=== PATIENT | male | born 1940 | race Caucasian/White ===

== ENCOUNTER → 2017-01-17 | Outpatient (CLI) | payer MEDICARE, BC ==
[2017-01-17 16:02] LABS: Calcium 10.6 mg/dL (8.4-10.2)
== END | disposition home or self-care (01) ==
LOC: LABWHC1 14:51
PROVIDERS: ATTEND Otolaryngology
DX: E21.3 Hyperparathyroidism, unspecified (principal)
CPT/HCPCS: 36415; 82310; 83970; 84443

== ENCOUNTER → 2017-01-20 | Outpatient (CLI) | payer MEDICARE, BC ==
--- NOTE | 2017-01-20 09:23 | US ---
EXAMINATION TYPE: US thyroid st tissue head/neck DATE OF EXAM: 01/20/2017 8:50 AM COMPARISON: US CLINICAL HISTORY: 76-year-old male Thyroid Nodule E04.1. Follow up thyroid nodule. TECHNIQUE: Multiple sonographic images of the thyroid gland are obtained. FINDINGS: GLAND SIZE: Right Lobe: 4.7 x 1.6 x 1.8 cm Overall Parenchyma: slightly heterogeneous Left Lobe: 3.4 x 1.2 x 1.7 cm Overall Parenchyma: slightly heterogeneous Isthmus Thickness: 0.3 cm NODULES RIGHT: # of nodules measured on right: 1 1. 0.7 X 0.5 x 0.8 cm hyperechoic solid nodule with hypoechoic rim at the upper/mid pole with well- defined margins. This nodule is wider than tall and shows no intranodular vascularity. Prior size: 0.5 x 0.5 x 0.4 cm. However, this may be relatively similar in size as the prior exam does not appear to have included the hypoechoic rim in the measurements. LEFT: # of nodules measured on left: 0 ISTHMUS: # of nodules measured in the isthmus: 0 The bilateral neck scanned, no evidence of lymphadenopathy. IMPRESSION: Echogenic nodule with hypoechoic rim measuring 8 mm in the right upper and mid pole. This was previou sly measured at 5 mm but may be relatively stable as the prior measurement did not include the hypoec hoic rim. This can continue to be reassessed at follow-up.
== END | disposition home or self-care (01) ==
LOC: RADUSWWP 08:19
PROVIDERS: ATTEND Otolaryngology
DX: E04.1 Nontoxic single thyroid nodule (principal)
CPT/HCPCS: 76536

== ENCOUNTER → 2017-08-03 | Outpatient (CLI) | payer MEDICARE, BC ==
--- NOTE | 2017-08-03 09:46 | US ---
EXAMINATION TYPE: US thyroid st tissue head/neck DATE OF EXAM: 08/03/2017 COMPARISON: Thyroid ultrasound dated 01/20/2017 CLINICAL HISTORY: E04.1 Thyroid nodule. Follow up thyroid nodule GLAND SIZE: Right Lobe: 4.4 x 2.1 x 1.8 cm Overall Parenchyma: heterogenous Left Lobe: 3.8 x 1.5 x 1.5 cm Overall Parenchyma: heterogeneous Isthmus Thickness: 0.3 cm NODULES RIGHT: # of nodules measured on right: 2 1. 0.7 X 0.6 x 0.8 cm hyperechoic solid nodule with hypoechoic rim at the upper pole with well-defi jaylene margins; . This nodule is wider than tall and shows intranodular vascularity. Prior size: 0.7 x 0.5 x 0.8 cm 2. 0.9 X 0.7 x 0.7 cm mixed nodule at the lower pole with well-defined margins; . This nodule is wi dar than tall and shows intranodular vascularity. Prior size: not measured prior LEFT: # of nodules measured on left: 0 ISTHMUS: # of nodules measured in the isthmus: 0 Bilateral neck scanned, no evidence of lymphadenopathy. IMPRESSION: Stable subcentimeter hyperechoic right upper pole nodule and additional new subcentimeter mixed but p redominantly hyperechoic lower pole nodule for which surveillance is recommended. No left-sided thyro id nodules.
== END | disposition home or self-care (01) ==
LOC: RADUSWWP 08:26
PROVIDERS: ATTEND Otolaryngology
DX: E04.2 Nontoxic multinodular goiter (principal)
CPT/HCPCS: 76536

== ENCOUNTER → 2018-02-15 | Outpatient (CLI) | payer MEDICARE, BC ==
--- NOTE | 2018-02-15 09:49 | US ---
EXAMINATION TYPE: US thyroid st tissue head/neck DATE OF EXAM: 02/15/2018 COMPARISON: US 2017 CLINICAL HISTORY: E04.1 Thyroid nodules. GLAND SIZE: Right Lobe: 4.4 x 1.7 x 2.1 cm Overall Parenchyma: homogenous Left Lobe: 3.3 x 1.4 x 1.3 cm Overall Parenchyma: homogeneous Isthmus Thickness: 0.5 cm NODULES RIGHT: # of nodules measured on right: 2 1. 0.6 X 0.6 x 0.6 cm echogenic mixed nodule at the upper pole with poorly defined margins. This n odule is wider as is tall and shows intranodular vascularity. Prior size: 0.7 x 0.6 x 0.8 cm 2. 0.6 X 0.5 x 0.6 cm echogenic mixed nodule at the lower pole with poorly defined margins. This no dule is taller than wide and shows no intranodular vascularity. Prior size: 0.9 x 0.7 x 0.7 cm LEFT: # of nodules measured on left: 0 ISTHMUS: # of nodules measured in the isthmus: 0 Bilateral neck scanned, no evidence of lymphadenopathy. IMPRESSION: 1. Stable nonspecific thyroid nodularity. The need to biopsy should be made on a clinical basis.
== END | disposition home or self-care (01) ==
LOC: RADUSWWP 09:00
PROVIDERS: ATTEND Otolaryngology
DX: E04.1 Nontoxic single thyroid nodule (principal)
CPT/HCPCS: 76536

== ENCOUNTER → 2019-03-05 | Outpatient (CLI) | payer MEDICARE, BC ==
--- NOTE | 2019-03-05 15:56 | US ---
EXAMINATION TYPE: US thyroid st tissue head/neck DATE OF EXAM: 03/05/2019 COMPARISON: 02/15/2018 CLINICAL HISTORY: E04.1 THYROID NODULE. Follow up thyroid nodules GLAND SIZE: Right Lobe: 4.6 x 1.7 x 1.8 cm Overall Parenchyma: homogenous Left Lobe: 3.5 x 1.3 x 1.2 cm Overall Parenchyma: homogeneous Isthmus Thickness: 0.3 cm NODULES RIGHT: # of nodules measured on right: 2 1. 1.0 X 0.7 x 0.7 cm mixed nodule at the upper pole with poorly defined margins; . This nodule is wider than tall and shows intranodular vascularity. Prior size: 0.6 x 0.6 x 0.6 cm 2. 0.8 X 0.7 x 0.7 cm mixed nodule at the lower pole with poorly defined margins; . This nodule is wider than tall and shows no intranodular vascularity. Prior size: 0.6 x 0.5 x 0.6 cm LEFT: # of nodules measured on left: 0 ISTHMUS: # of nodules measured in the isthmus: 0 Bilateral neck scanned, no evidence of lymphadenopathy. IMPRESSION: Minimal interval growth of the right thyroid nodules the largest measuring up to 1 cm. These do not y et meet size criteria for fine-needle aspiration and continued surveillance is recommended.
== END | disposition home or self-care (01) ==
LOC: RADUSWWP 14:32
PROVIDERS: ATTEND Otolaryngology
DX: E04.2 Nontoxic multinodular goiter (principal)
CPT/HCPCS: 76536

== ENCOUNTER → 2020-05-30 | Outpatient (CLI) | payer MEDICARE ==
--- NOTE | 2020-05-30 15:17 | US ---
EXAMINATION TYPE: US thyroid st tissue head/neck DATE OF EXAM: 05/30/2020 COMPARISON: 03/05/2019 CLINICAL HISTORY: 79-year-old male E04.1 follow-up Thyroid nodule. TECHNIQUE: Multiple sonographic images of the thyroid gland are obtained. FINDINGS: GLAND SIZE: Right Lobe: 4.4 x 1.4 x 2.3 cm Overall Parenchyma: homogenous Left Lobe: 3.8 x 1.1 x 1.7 cm Overall Parenchyma: homogeneous Isthmus Thickness: 0.4 cm NODULES RIGHT: # of nodules measured on right: 1 1. 1.1 X 0.8 x 0.6 cm mixed nodule at the mid pole with well-defined margins. This nodule is wider than tall and shows no intranodular vascularity. Prior size: 1.0 x 0.7 x 0.7 cm LEFT: # of nodules measured on left: 0 Could not appreciate the previously seen cyst on the present exam ISTHMUS: # of nodules measured in the isthmus: 0 Bilateral neck scanned, no evidence of lymphadenopathy. IMPRESSION: The mixed, solid cystic nodule in the right mid pole measures 1.1 x 0.8 cm (versus 1.0 x 0.7 cm, prev iously). Not significantly changed. Additional follow-up can be performed.
== END | disposition home or self-care (01) ==
LOC: RADUSWWP 12:26
PROVIDERS: ATTEND Otolaryngology
DX: E04.1 Nontoxic single thyroid nodule (principal)
CPT/HCPCS: 76536

== ENCOUNTER → 2020-10-28 | Outpatient (CLI) | payer MEDICARE ==
--- NOTE | 2020-10-29 08:32 | XR ---
EXAMINATION TYPE: XR chest 2V DATE OF EXAM: 10/28/2020 COMPARISON: Chest x-ray 04/23/2016 HISTORY: Congestive heart failure, abnormal lung sounds TECHNIQUE: Frontal and lateral views of the chest are obtained. FINDINGS: Generators present in left pectoral region, leads are present right atrium and ventricle. Cardiac mediastinal silhouette shows a stable appearance. Interstitium is increased. No evident pneum othorax or pleural effusion. IMPRESSION: Correlate for possible interstitial edema, there is likely underlying interstitial lung disease
== END | disposition home or self-care (01) ==
LOC: RADXRMAIN 15:56
PROVIDERS: ATTEND Internal Medicine Cardiovascular Disease
DX: I50.9 Heart failure, unspecified (principal)
CPT/HCPCS: 71046

== ENCOUNTER → 2020-10-28 | Outpatient (CLI) | payer MEDICARE ==
[2020-10-29 02:02] LABS: Albumin 4.5 g/dL (3.80-4.90); Albumin/Globulin Ratio 1.88 (1.60-3.17); Anion Gap 9.3 mmol/L (4.00-12.00); Calcium 10.3 mg/dL (8.7-10.3); Carbon Dioxide 27.7 mmol/L (21.6-31.8); Globulin 2.4 g/dL (1.6-3.3); Magnesium 1.7 mg/dL (1.5-2.4); Non-African American GFR(CKD) 70.8 (60.0-200.0); Potassium 4.2 mmol/L (3.5-5.5); Total Bilirubin 1.2 mg/dL (0.3-1.2); Total Protein 6.9 g/dL (6.2-8.2)
== END | disposition home or self-care (01) ==
LOC: LABWHC1 15:01
PROVIDERS: ATTEND Internal Medicine Cardiovascular Disease
DX: I50.9 Heart failure, unspecified (principal)
CPT/HCPCS: 36415; 80053; 83735; 83880

== ENCOUNTER → 2021-07-02 | Outpatient (CLI) | payer MEDICARE ==
--- NOTE | 2021-07-03 07:04 | US ---
EXAMINATION TYPE: US thyroid st tissue head/neck DATE OF EXAM: 07/02/2021 COMPARISON: 05/30/2020 CLINICAL HISTORY: E04.1 thyroid nodule. f/u exam GLAND SIZE: Right Lobe: 3.7 x 1.4 x 2.2 cm Overall Parenchyma: homogenous Left Lobe: 3.0 x 1.5 x 2.0 cm Overall Parenchyma: homogeneous Isthmus Thickness: 0.4 cm NODULES RIGHT: # of nodules measured on right: 0 - previous cystic lesion no longer persists on today's exa m LEFT: # of nodules measured on left: 0 ISTHMUS: # of nodules measured in the isthmus: 0 Bilateral neck scanned, no evidence of lymphadenopathy. IMPRESSION: No sizable thyroid nodule seen on today's exam 2017 ACR TI-RADS LEVEL: TR-RADS 1 - BENIGN: No FNA *Highest TI-RADS level nodule reported
== END | disposition home or self-care (01) ==
LOC: RADUSWWP 15:21
PROVIDERS: ATTEND Otolaryngology
DX: Z09 Encounter for follow-up examination after completed treatment for conditions other than malignant neoplasm (principal); Z86.39 Personal history of other endocrine, nutritional and metabolic disease
CPT/HCPCS: 76536

== ENCOUNTER 2022-02-20 20:17 | Emergency (ER) | payer MEDICARE ==
[2022-02-20] MEDS ORDERED: SODIUM CHLORIDE 0.9% 500 ML 500 ML IV STA (20:20)
--- NOTE | 2022-02-20 20:31 | ED ---
General Adult HPI - General Stated complaint: Neuro Deficits - History of Present Illness Initial comments: Dictation was produced using [employer] dictation software. please excuse any grammatical, word or spelling errors. Chief Complaint: 81-year-old male presents with strokelike symptoms starting at approximately 6:30 PM History of Present Illness: Today 81-year-old male. History of present illness provided by EMS and granddaughter. Patient's granddaughter is one of our mid- level provider's. According to EMS patient was at the dinner table at around 6: 30 PM when he was noticed to acutely have mental status changes. There was concern that patient was having low blood sugars so tried to force food on the patient's mouth. Shortly after EMS was called and evaluated the patient. Upon initial evaluation there is concerns of stroke with left-sided facial droop and left upper extremity paralysis. Patient is also aphasic and has right-sided jose-neglect. Patient is not taking any coagulation medications. He is not a DO NOT RESUSCITATE. Patient has history of diabetes, dyslipidemia and hypertension. Throat today most of the day today patient was seen to be at baseline. He was seen at baseline for most of the day until around 6:37 PM. EMS reports that patient's point of care blood glucose was 233. The ROS documented in this emergency department record has been reviewed and confirmed by me. Those systems with pertinent positive or negative responses have been documented in the HPI. All other systems are other negative and/or n oncontributory. PHYSICAL EXAM: General Impression: Alert 1/4, not in acute distress HEENT: Normocephalic atraumatic, extra-ocular movements intact, pupils equal and reactive to light bilaterally, mucous membranes moist. Cardiovascular: Heart regular rate and rhythm Chest: Able to complete full sentences, no retractions, no tachypnea Abdomen: abdomen soft, non-tender, non-distended, no organomegaly Musculoskeletal: Pulses present and equal in all extremities, no peripheral edema Motor: no focal deficits noted Neurological: Left-sided facial droop left upper trauma a paralysis, weakness of the left lower extremity, aphasic, dysarthric, right-sided jose-neglect, NIH score 15 Skin: Intact with no visualized rashes Psych: Normal affect and mood ED course: 81 y Old male presents with acute strokelike symptoms. Last normal was at approximately 6:30 PM. Patient was activated alteplase. Patient does not have any absolute contraindications. Vital signs upon arrival shows blood pressure 137/70, rest of vital signs within acceptable limits. 8:50 PM: Case was discussed with Dr. Givens from the stroke at work who agrees the patient is a candidate for alteplase. Risk and benefits were discussed with patient's and children at the bedside. They understand the risk of seeming thrombolytic medications. They do reiterate that last known normal was at approximately 6:[address] Toth who reviewed the images and CT angiography of the brain and neck shows right MCA occlusion. Patient be arranged for transfer to [facility] for thrombectomy and further care. Per [facility] protocol patient will be transferred for ER because of alteplase administration. Case discussed with Dr. Harrison of [facility] is willing to accept patients care for transfer. EKG interpretation: Ventricular rate 80, left bundle branch block, unclear rhythm there is no obvious and discernible P waves QRS 184, QTC 464. No MI prolongation, no QTC prolongation, no ST or T-wave changes noted. EKG compared to 04/23/2016 showing no changes. Overall, this EKG is nonspecific - Related Data Home Medications Medication Instructions Recorded Confirmed Carvedilol 25 mg PO BID 04/03/14 02/20/22 Omeprazole [PriLOSEC] 20 mg PO DAILY 04/03/14 02/20/22 amLODIPine BESYLATE [Norvasc] 10 mg PO DAILY 04/03/14 02/20/22 Aspirin 81 mg PO DAILY 05/02/15 02/20/22 metFORMIN HCL [Glucophage] 500 mg PO BID 07/11/15 02/20/22 Atorvastatin [Lipitor] 20 mg PO HS 04/23/16 02/20/22 ALPRAZolam [Xanax] 0.5 mg PO DAILY PRN 02/20/22 02/20/22 Furosemide [Lasix] 20 mg PO DAILY 02/20/22 02/20/22 Loratadine 10 mg PO DAILY 02/20/22 02/20/22 Losartan-Hctz 50-12.5 mg [Hyzaar 1 tab PO DAILY 02/20/22 02/20/22 50-12.5] Potassium Chloride ER [K-Dur 10] 10 meq PO DAILY 02/20/22 02/20/22 Semaglutide [Rybelsus] 7 mg PO DAILY 02/20/22 02/20/22 Allergies Allergy/AdvReac Type Severity Reaction Status Date / Time codeine AdvReac Hallucinati Verified 02/20/22 20:59 ons indomethacin [From Indocin] AdvReac Hallucinati Verified 02/20/22 20:59 ons indomethacin sodium AdvReac Hallucinati Verified 02/20/22 20:59 [From Indocin] ons Review of Systems ROS Statement: Those systems with pertinent positive or pertinent negative responses have been documented in the HPI. ROS Other: All systems not noted in ROS Statement are negative. Past Medical History Past Medical History: Diabetes Mellitus, GERD/Reflux, Hyperlipidemia, Hypertension, Myocardial Infarction (RI) Additional Past Medical History / Comment(s): GOUT Last Myocardial Infarction Date:: 7 or 8 yrs ago History of Any Multi-Drug Resistant Organisms: None Reported Past Surgical History: AICD, Cholecystectomy, Heart Catheterization With Stent Additional Past Surgical History / Comment(s): left eye surgery Past Anesthesia/Blood Transfusion Reactions: No Reported Reaction Date of Last Stent Placement:: 7 or 8 yrs ago Type of Cardiac Device: AICD Device Placement Date:: 2006 Past Psychological History: No Psychological Hx Reported Past Alcohol Use History: None Reported Past Drug Use History: None Reported - Past Family History Mother Family Medical History: Cancer Sister(s) Family Medical History: Cancer Additional Family Medical History / Comment(s): LUNG Course Vital Signs 02/20/22 02/20/22 02/20/22 20:20 20:35 20:50 Temperature 97.8 F Pulse Rate 79 81 80 Respiratory 18 16 17 Rate Blood Pressure 147/75 154/77 137/72 O2 Sat by Pulse 97 97 97 Oximetry 02/20/22 02/20/22 02/20/22 20:51 21:06 21:30 Temperature Pulse Rate 80 81 79 Respiratory 18 18 18 Rate Blood Pressure 116/64 135/74 138/69 O2 Sat by Pulse 95 98 96 Oximetry 02/20/22 21:35 Temperature Pulse Rate 88 Respiratory 18 Rate Blood Pressure 138/67 O2 Sat by Pulse 97 Oximetry Medical Decision Making - Lab Data Result diagrams: 02/20/22 20:36 02/20/22 20:36 Lab Results 02/20/22 02/20/22 02/20/22 Range/Units 20:34 20:36 20:36 WBC 8.1 (3.8-10.6) k/uL RBC 4.25 L (4.30-5.90) m/uL Hgb 12.6 L (13.0-17.5) gm/dL Hct 39.9 (39.0-53.0) % MCV 94.0 (80.0-100.0) fL MCH 29.6 (25.0-35.0) pg MCHC 31.5 (31.0-37.0) g/dL RDW 13.1 (11.5-15.5) % Plt Count 187 (150-450) k/uL MPV 8.4 Neutrophils % 48 % Lymphocytes % 32 % Monocytes % 8 % Eosinophils % 9 % Basophils % 1 % Neutrophils # 3.9 (1.3-7.7) k/uL Lymphocytes # 2.5 (1.0-4.8) k/uL Monocytes # 0.7 (0-1.0) k/uL Eosinophils # 0.7 (0-0.7) k/uL Basophils # 0.1 (0-0.2) k/uL PT 11.5 (9.0-12.0) sec INR 1.1 (<1.2) APTT 24.5 (22.0-30.0) sec Sodium (137-145) mmol/L Potassium (3.5-5.1) mmol/L Chloride (98-107) mmol/L Carbon Dioxide (22-30) mmol/L Anion Gap mmol/L BUN (9-20) mg/dL Creatinine (0.66-1.25) mg/dL Est GFR (CKD-EPI)AfAm (>60 ml/min/1.73 sqM) Est GFR (CKD-EPI)NonAf (>60 ml/min/1.73 sqM) Glucose (74-99) mg/dL POC Glucose (mg/dL) 180 H (75-99) mg/dL POC Glu [facility] ID Roxi Flowers Calcium (8.4-10.2) mg/dL Total Bilirubin (0.2-1.3) mg/dL AST (17-59) U/L ALT (4-49) U/L Alkaline Phosphatase (38-126) U/L Troponin I (0.000-0.034) ng/mL Total Protein (6.3-8.2) g/dL Albumin (3.5-5.0) g/dL Coronavirus (PCR) (Not Detectd) 02/20/22 02/20/22 02/20/22 Range/Units 20:36 20:36 21:04 WBC (3.8-10.6) k/uL RBC (4.30-5.90) m/uL Hgb (13.0-17.5) gm/dL Hct (39.0-53.0) % MCV (80.0-100.0) fL MCH (25.0-35.0) pg MCHC (31.0-37.0) g/dL RDW (11.5-15.5) % Plt Count (150-450) k/uL MPV Neutrophils % % Lymphocytes % % Monocytes % % Eosinophils % % Basophils % % Neutrophils # (1.3-7.7) k/uL Lymphocytes # (1.0-4.8) k/uL Monocytes # (0-1.0) k/uL Eosinophils # (0-0.7) k/uL Basophils # (0-0.2) k/uL PT (9.0-12.0) sec INR (<1.2) APTT (22.0-30.0) sec Sodium 135 L (137-145) mmol/L Potassium 5.1 (3.5-5.1) mmol/L Chloride 104 (98-107) mmol/L Carbon Dioxide 27 (22-30) mmol/L Anion Gap 4 mmol/L BUN 24 H (9-20) mg/dL Creatinine 0.80 (0.66-1.25) mg/dL Est GFR (CKD-EPI)AfAm >90 (>60 ml/min/1.73 sqM) Est GFR (CKD-EPI)NonAf 84 (>60 ml/min/1.73 sqM) Glucose 176 H (74-99) mg/dL POC Glucose (mg/dL) (75-99) mg/dL POC Glu [place] [facility] ID Calcium 9.3 (8.4-10.2) mg/dL Total Bilirubin 0.8 (0.2-1.3) mg/dL AST 28 (17-59) U/L ALT 23 (4-49) U/L Alkaline Phosphatase 141 H (38-126) U/L Troponin I 0.013 (0.000-0.034) ng/mL Total Protein 6.3 (6.3-8.2) g/dL Albumin 3.4 L (3.5-5.0) g/dL Coronavirus (PCR) Not Detected (Not Detectd) Critical Care Time Critical Care Time: Yes Total Critical Care Time: 33 Disposition Clinical Impression: Cerebrovascular accident (CVA) Disposition: OTHER INSTITUTION NOT DEFINED Condition: Critical Referrals: Dharmesh Dimas MD [Primary Care Provider] - 1-2 days - Out of Hospital Transfer - Req. Specs Out of Hospital Transfer - Requested Specifics: Other Emergency Center ([facility])
--- NOTE | 2022-02-20 20:32 | CT ---
EXAMINATION TYPE: CT brain wo con for TPA DATE OF EXAM: 02/20/2022 COMPARISON: None HISTORY: Neuro deficits, LT side, code stroke CT DLP: 1106.6 mGycm Automated exposure control for dose reduction was used. There is cerebral cortical atrophy. There is no mass effect or midline shift. No sign of intracranial hemorrhage. Calvarium is intact. IMPRESSION: Cerebral atrophy. No acute intracranial abnormality.
[2022-02-20] MEDS ORDERED: Alteplase PER PHARMACY Stroke 1 EACH MISC MISCELLANE PRN (20:33)
[2022-02-20] MEDS ORDERED: ALTEPLASE 61 MG in EMPTY BAG 1 BAG IV STA (20:34)
[2022-02-20] MEDS ORDERED: ALTEPLASE BOLUS FOR STROKE 7 MG in EMPTY SYRINGE 1 SYR IV STA (20:34)
[2022-02-20 20:45] LABS: Glucose,Whole Blood 180 mg/dL (75-99)
[2022-02-20 20:51] LABS: Basophils # (A) 0.1 k/uL (0-0.2); Basophils % (A) 1 %; Eosinophils # (A) 0.7 k/uL (0-0.7); Eosinophils % (A) 9 %; HCT 39.9 % (39.0-53.0); HGB 12.6 gm/dL (13.0-17.5); Lymphocytes # (A) 2.5 k/uL (1.0-4.8); Lymphocytes % (A) 32 %; MCH 29.6 pg (25.0-35.0); MCHC 31.5 g/dL (31.0-37.0); Mean Platelet Volume 8.4; Monocytes # (A) 0.7 k/uL (0-1.0); Monocytes % (A) 8 %; Neutrophils # (A) 3.9 k/uL (1.3-7.7); Neutrophils % (A) 48 %; Platelet Count 187 k/uL (150-450); RBC 4.25 m/uL (4.30-5.90); RDW 13.1 % (11.5-15.5); WBC 8.1 k/uL (3.8-10.6)
[2022-02-20 20:59] LABS: ALT 23 U/L (4-49); AST 28 U/L (17-59); African American GFR (CKD) >90 (>60 ml/min/1.73 sqM); Albumin 3.4 g/dL (3.5-5.0); Alkaline Phosphatase 141 U/L (38-126); Anion Gap 4 mmol/L; Blood Urea Nitrogen 24 mg/dL (9-20); Calcium 9.3 mg/dL (8.4-10.2); Carbon Dioxide 27 mmol/L (22-30); Chloride 104 mmol/L (98-107); Glucose 176 mg/dL (74-99); Non-African American GFR(CKD) 84 (>60 ml/min/1.73 sqM); Sodium 135 mmol/L (137-145); Total Bilirubin 0.8 mg/dL (0.2-1.3); Total Protein 6.3 g/dL (6.3-8.2)
[2022-02-20 21:00] VITALS: TEMP 97.8
--- NOTE | 2022-02-20 21:05 | CT ---
EXAMINATION TYPE: CT angio head neck DATE OF EXAM: 02/20/2022 COMPARISON: None HISTORY: left side weakness CT DLP: 393.7 mGycm Automated exposure control for dose reduction was used. CONTRAST: Performed with IV Contrast, patient injected with 65 mL of Isovue 370. Images obtained from the aortic arch to the vertex of the brain with IV contrast. There are 3-D post processed images. There is normal branching pattern of the great vessels on the aortic arch. There is bilateral arteria l flow in the subclavian arteries. There is arterial flow in the common internal and external carotid arteries bilaterally. There is mild plaque formation at the carotid artery bifurcations. There is es timated 20% stenosis at the origin of the right internal carotid artery. There is no evidence of sten osis at the origin left internal carotid artery. There is bilateral arterial flow in the vertebral ar teries. Right vertebral artery is much larger than the left. The basilar artery appears to fill mostl y from the right side. There is arterial flow in the vertebrobasilar artery system. No evidence of ca rotid or vertebral artery aneurysm or dissection. There is arterial flow in the anterior middle and posterior cerebral arteries. No evidence of intracr anial aneurysm or neovascularity. There is normal enhancement of the venous sinuses. No evidence of i ntracranial aneurysm or neovascularity. There appears to be some diminished flow in the distal right middle cerebral artery and the bifurcation. No evidence of intracranial mass effect. IMPRESSION: Minimal plaque at the right carotid bifurcation. No evidence of hemodynamic stenosis in the neck. Decreased blood flow apparently in branches of the right middle cerebral artery that could relate to some severe stenosis or thrombosis. Clinical correlation recommended.
[2022-02-20 21:21] VITALS: RESP 18
[2022-02-20 21:31] LABS: Potassium 5.1 mmol/L (3.5-5.1)
[2022-02-20] MEDS ORDERED: SODIUM CHLORIDE 0.9% 50 ML MINI-BAG IV ONE ×2 (21:34)
[2022-02-20 21:37] VITALS: BP 138/67; PULSE 88
[2022-02-20 21:59] LABS: INR 1.1 (<1.2); Partial Thromboplastin Time 24.5 sec (22.0-30.0); Prothrombin Time 11.5 sec (9.0-12.0)
== END 2022-02-20 21:36 | disposition other institution (70) ==
LOC: SUPCPDRO 20:17 → EC 20:17
DX: I63.9 Cerebral infarction, unspecified (principal); E11.9 Type 2 diabetes mellitus without complications; E78.5 Hyperlipidemia, unspecified; I10 Essential (primary) hypertension; I25.2 Old myocardial infarction; K21.9 Gastro-esophageal reflux disease without esophagitis; Z79.82 Long term (current) use of aspirin; Z79.84 Long term (current) use of oral hypoglycemic drugs; Z79.899 Other long term (current) drug therapy; Z88.5 Allergy status to narcotic agent; Z95.810 Presence of automatic (implantable) cardiac defibrillator; Z20.822 Contact with and (suspected) exposure to COVID-19; Z88.6 Allergy status to analgesic agent
CPT/HCPCS: 36415; 93005; 80053; 84484; 85025; 85610; 85730; 87635; 70496; 70450; 70498; 99291; 37195; J2997; Q9967